=== PATIENT | female | born 1945 | race African-American/Black ===

== ENCOUNTER 2018-02-02 09:28 | Day surgery (SDC) | payer OTHER ==
[2018-02-01 17:16] VITALS: BMI 27.5
[2018-02-02] MEDS ORDERED: PROPOFOL 20 ML ONE ×2 (13:00)
[2018-02-02] MEDS ORDERED: MIDAZOLAM HCL 2 MG/2 ML SINGLE DOSE VIAL ONE ×2 (13:01→13:05)
[2018-02-02] MEDS ORDERED: SUCCINYLCHOLINE CHLORIDE 200 MG/10 ML VIAL ONE (13:01)
[2018-02-02] MEDS ORDERED: PAPAVERINE HCL 30 MG/1 ML 10 ML VIAL NR ONE (13:22)
[2018-02-02] MEDS ORDERED: HEPARIN NA (PORCINE) 5,000 UNITS/ML 1ML VIAL SQ ONE (13:39)
[2018-02-02] MEDS ORDERED: LIDOCAINE HCL 1%, 10 MG/ML (20ML VIAL) NR ONE (13:39)
[2018-02-02] MEDS ORDERED: ONDANSETRON 4 MG/2 ML VIAL IVPUSH PRN (14:01)
[2018-02-02] MEDS ORDERED: oxyCODONE HCL 5 MG TABLET PO PRN (14:01)
[2018-02-02] MEDS ORDERED: ACETAMINOPHEN 325 MG TABLET (FP) PO PRN (14:01)
[2018-02-02] MEDS ORDERED: SODIUM CHLORIDE 1,000 ML IV SCH (14:15)
--- NOTE | 2018-02-02 14:32 | OP ---
Operative Note - Note: Operative Date: 02/02/18 Pre-Operative Diagnosis: Renal failure Operation: Creation AV fistula left arm Findings: Cephalic vein with intraluminal scar at antecubital fossa. Post-Operative Diagnosis: Same as Pre-op Surgeon: Edwin Meléndez Head Athletic Trainer: Miquel Powell Anesthesiologist/PUMP ASSEMBLER: Nigel Scott Anesthesia: Fractional Estimated Blood Loss (mls): 15
--- NOTE | 2018-02-02 14:33 | HP ---
History & Physical Update - Physical Currently as noted:: Left cephalic vein patent but small diameter. Basilic vein small. - Plan Currently as noted:: Creation AV fistula left arm
--- NOTE | 2018-02-02 14:37 | SURG ---
Surgery Venetian Blind Mechanic Note Venetian Blind Mechanic: Miquel Powell PA-C Date of Service: 02/02/18 Diagnosis: Renal failure Procedure: Left arm AV fistula creation I was present for the entirety of the operative procedure. For further detail, please refer to operative report.
[2018-02-02] MEDS ORDERED: oxyCODONE HCL 5 MG TABLET PO ONE (16:24)
[2018-02-02] MEDS ORDERED: oxyCODONE HCL 5 MG TABLET ONE (16:27)
[2018-02-02 17:11] VITALS: BP 155/79; PULSE 63; TEMP 98
--- NOTE | 2018-02-04 10:21 | OP ---
DATE OF OPERATION: 02/02/2018 SURGEON: Edwin Meléndez MD HEALTH CARE LEGAL ASSISTANT: LULI Costa PROCEDURE: Creation of arteriovenous fistula, left arm. PREOPERATIVE DIAGNOSIS: Renal failure. POSTOPERATIVE DIAGNOSIS: Renal failure. ANESTHESIA: Fractional. ANESTHESIOLOGIST: Nigel Scott MD OPERATIVE FINDINGS: The cephalic vein was patent at the antecubital fossa with evidence of intraluminal scarring just proximal to the antecubital crease. The brachial artery was adequate size for anastomosis. OPERATIVE PROCEDURE: Following routine patient identification with side and site verification, the left arm was prepped with ChloraPrep. Xylocaine 1% was infiltrated in the antecubital fossa, and a longitudinal incision made. The antecubital portion of the cephalic vein was mobilized and secured with a vessel loop. It was ligated distally and incised. It was distended with heparin and papaverine solution. I attempted to pass a No. 5 feeding tube and met resistance just proximal to the elbow crease. A Ybarra valvulotome was inserted to cut scar tissue from within the vein that had been seen on preoperative duplex imaging. This allowed passage of the 5 feeding tube without difficulty. An 8 feeding tube passed up to the mid upper arm, but would not pass more proximally. As this was the only adequate vein in the arm for a fistula, it was decided to proceed with the procedure with the understanding that the vein may not mature and require balloon maturation. Therefore, the wound was deepened through the muscle fascia, and the brachial artery was identified. It was secured proximally and distally with vessel loops. The artery was occluded with vessel loops and opened on exposed surface with a 6-mm arteriotomy. The vein was spatulated, and anastomosed to the side of the artery with running suture of 6-0 Prolene. Prior to the completion of the suture line, the artery was allowed to back-bleed and flush, and the vein was flushed with heparin solution. Suture line was completed, and the vessels were released. There was good flow through the anastomosis with a palpable pulse in the proximal vein. When bleeding was controlled, the wound was closed with interrupted suture of 3-0 Vicryl and skin jason. A sterile dressing was applied, and the patient was taken to the recovery room in stable condition. EDWIN MELÉNDEZ M.D. [id number]
== END 2018-02-02 17:10 | disposition home or self-care (01) ==
LOC: JASU-SURG 09:28
PROVIDERS: ATTEND Surgery
PROC: 03180ZD Bypass Left Brachial Artery to Upper Arm Vein, Open Approach (ICD-10-PCS; principal; 2018-02-02 10:00)
DX: I12.0 Hypertensive chronic kidney disease with stage 5 chronic kidney disease or end stage renal disease (principal); N18.6 End stage renal disease; Z99.2 Dependence on renal dialysis
CPT/HCPCS: 94760; J1644